=== PATIENT | male | born 1975 | race African-American/Black ===

== ENCOUNTER 2016-05-25 21:04 | Emergency (ER) | payer OTHER ==
[~2016-05-25] VITALS: Ht 175.3 cm; Wt 99.8 kg
[2016-05-25 21:25] VITALS: BP 143/83
[2016-05-25] MEDS ORDERED: IBUPROFEN600 MG ORAL (21:54)
[2016-05-25] MEDS ORDERED: ROBAXIN-750750 MG PO (21:54)
[2016-05-25 22:00] VITALS: BP 143/83
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
== END 2016-05-25 22:00 | disposition home or self-care (01) ==
LOC: EMR 21:51
DX: S13.9XXA Sprain of joints and ligaments of unspecified parts of neck, initial encounter (principal); V43.52XA Car driver injured in collision with other type car in traffic accident, initial encounter; Y93.9 Activity, unspecified; Y92.410 Unspecified street and highway as the place of occurrence of the external cause; M25.512 Pain in left shoulder
CPT/HCPCS: 99284